=== PATIENT | male | born 1970 | race African-American/Black ===

== ENCOUNTER 2021-12-15 12:33 | Inpatient (IN) | payer MEDICAID ==
[~2021-12-15] VITALS: Ht 175.3 cm; Wt 98.4 kg
[2021-12-15] MEDS ORDERED: IOHEXOL-350 100 ML BOTTLE ONE (13:15)
[2021-12-15 13:26] LABS: BASOPHILS % 0.7 % (0.0-2.0); EOSINOPHILS % 2.9 % (0.0-5.0); HEMATOCRIT. 35.1 % (42.0-52.0); HEMOGLOBIN. 11.6 g/dL (14.0-18.0); LYMPHOCYTES % 12.3 % (20.0-50.0); MEAN CORPUSCULAR HEMOGLOBIN 30.4 pg (28.0-32.0); MEAN CORPUSCULAR VOLUME 91.8 fL (80.0-94.0); MEAN PLATELET VOLUME 8.7 fl (7.4-10.4); MONOCYTES % 7.1 % (2.0-8.0); PLATELET 260 x1000/uL (130-400); RED BLOOD CELL COUNT 3.82 mill/uL (4.7-6.1); RED CELL DISTRIBUTION WIDTH 13.9 % (11.6-14.6)
[2021-12-15 13:30] LABS: CHLORIDE 107 mEq/L (98-107)
[2021-12-15] MEDS ORDERED: DIAZEPAM 5 MG/ML 2ML CPJ IV ONE (13:30)
[2021-12-15 13:41] LABS: ETHANOL BLOOD < 10 mg/dL
[2021-12-15] MEDS ORDERED: LEVETIRACETAM 500MG PREMIX 100 ML IV ONE ×3 (13:45)
[2021-12-15] MEDS: SODIUM CHLORIDE 0.9% IV NR ×2 (14:09→15:19)
[2021-12-15] MEDS: DIAZEPAM 5 MG/ML 2ML CPJ IV NR ×2 (14:09→15:19)
[2021-12-15] MEDS: VALPROATE SODIUM IV NR ×2 (14:09→15:19)
[2021-12-15] MEDS ORDERED: SODIUM CHLORIDE 0.9% 1,000 ML IV ONE (14:15)
[2021-12-15] MEDS ORDERED: MAGNESIUM/ALUMINUM HYDROXIDE/SIMETHICONE 30ML UDC PO PRN (17:00)
[2021-12-15] MEDS ORDERED: ACETAMINOPHEN 325MG TABLET PO PRN (17:00)
[2021-12-15] MEDS ORDERED: DIAZEPAM 5 MG/ML 2ML CPJ IV PRN (17:00)
[2021-12-15] MEDS ORDERED: DIPHENHYDRAMINE 50MG/ML VIAL IV PRN (17:00)
[2021-12-15] MEDS ORDERED: ONDANSETRON HCL 4MG/2ML INJ IV PRN (17:00)
[2021-12-15] MEDS ORDERED: LEVETIRACETAM 500 MG in SODIUM CHLORIDE 0.9% 100 ML IV SCH (17:00)
[2021-12-15] MEDS ORDERED: ZOLPIDEM TARTRATE 5MG TABLET PO PRN (17:00)
[2021-12-15 20:02] LABS: CLARITY URINE CLEAR (CLEAR); COLOR URINE YELLOW (YELLOW); KETONES URINE NEGATIVE (NEGATIVE); LEUKOCYTE ESTERASE URINE NEGATIVE (NEGATIVE); NITRITE URINE NEGATIVE (NEGATIVE); OCCULT BLOOD URINE TRACE (NEGATIVE); PH URINE 7.5 (4.5-8.0); PROTEIN URINE 3+ (NEGATIVE); SPECIFIC GRAVITY URINE 1.014 (1.005-1.030)
[2021-12-15 20:14] LABS: *AMPHETAMINES SCREEN URINE NEGATIVE (NEGATIVE); *BARBITURATES SCREEN URINE NEGATIVE (NEGATIVE); *BENZODIAZEPINES SCREEN URINE NEGATIVE (NEGATIVE); *COCAINE SCREEN URINE NEGATIVE (NEGATIVE); CANNABINOID URINE SCREEN NEGATIVE (NEGATIVE); METHADONE URINE SCREEN NEGATIVE (NEGATIVE); OPIATES URINE SCREEN NEGATIVE (NEGATIVE); PHENCYCLIDINE URINE SCREEN NEGATIVE (NEGATIVE)
[2021-12-15] MEDS: LEVETIRACETAM 500MG PREMIX 100 ML IV SCH (21:08)
[2021-12-15] MEDS: SODIUM CHLORIDE 0.9% INJ 3ML FLUSH IVF SCH (21:50)
[2021-12-16 08:30] VITALS: BP 172/94
[2021-12-16] MEDS: LEVETIRACETAM 500MG PREMIX 100 ML IV SCH (09:00)
[2021-12-16 09:02] VITALS: BP 172/94
[2021-12-16] MEDS ORDERED: AMLO5TAB4 PO (10:17)
[2021-12-16] MEDS ORDERED: ATOR80TA PO (10:17)
[2021-12-16] MEDS ORDERED: VALP250C3 PO (10:17)
[2021-12-16] MEDS ORDERED: KETO15CR2 TP (10:17)
[2021-12-16] MEDS ORDERED: BACL-141 PO (10:17)
[2021-12-16] MEDS ORDERED: ALBU6.7H9 INH (10:17)
[2021-12-16] MEDS ORDERED: CLOP-31 PO (10:17)
[2021-12-16] MEDS ORDERED: ASPI-1497 PO (10:17)
[2021-12-16] MEDS ORDERED: INSU100V37 SQ (10:17)
[2021-12-16] MEDS ORDERED: FLUT1DIS3 INH (10:31)
[2021-12-16] MEDS ORDERED: INSU100I24 SQ (10:31)
[2021-12-16] MEDS ORDERED: HC A30CR10 RC (10:31)
[2021-12-16 12:00] VITALS: BP 149/60
[2021-12-16] MEDS ORDERED: LEVETIRACETAM 500MG PREMIX 100 ML IV SCH (13:30)
[2021-12-16] MEDS ORDERED: DEXTROSE 50% WATER 50ML SYRINGE IV PRN (13:45)
[2021-12-16] MEDS: SODIUM CHLORIDE 0.9% INJ 3ML FLUSH IVF SCH ×2 (14:00→21:44)
[2021-12-16] MEDS ORDERED: IPRATROPIUM/ALBUTEROL 0.5-3(2.5)MG/3ML NEB HHN PRN (14:00)
[2021-12-16 16:01] VITALS: BP 148/69
[2021-12-16] MEDS: ASPIRIN 81MG EC TABLET PO SCH (16:03)
[2021-12-16] MEDS: CLOPIDOGREL 75MG TABLET PO SCH (16:03)
[2021-12-16] MEDS: AMLODIPINE 5MG TABLET PO SCH (16:03)
[2021-12-16] MEDS: LEVETIRACETAM 500MG TABLET PO SCH ×2 (16:03→21:41)
[2021-12-16] MEDS: IPRATROPIUM/ALBUTEROL 0.5-3(2.5)MG/3ML NEB HHN SCH ×3 (16:19→23:33)
[2021-12-16] MEDS: BLOOD SUGAR DIAGNOSTIC STRIP TEST SCH ×2 (17:06→21:42)
[2021-12-16] MEDS: INSULIN LISPRO 100 UNITS/ML SUBCUT SCH ×2 (17:32→21:44)
[2021-12-16] MEDS: BACLOFEN 10MG TABLET PO SCH (17:38)
[2021-12-16] MEDS: VALPROIC ACID 250MG CAPSULE PO SCH (17:38)
[2021-12-16 20:00] VITALS: BP 166/90
[2021-12-16] MEDS ORDERED: MEDICATION NOT ON FORMULARY EA (Atorvastatin Calcium (Lipitor) 80 MG) PO SCH (21:00)
[2021-12-16] MEDS: ATORVASTATIN CALCIUM 40MG TABLET PO SCH (21:41)
[2021-12-16] MEDS: CLONIDINE 0.1MG TABLET PO PRN (21:42)
[2021-12-16] MEDS: ACETAMINOPHEN 325MG TABLET PO PRN (21:46)
[2021-12-17] VITALS: BP 147/76
[2021-12-17 00:16] LABS: HEPATITIS B SURFACE ANTIGEN NEGATIVE
[2021-12-17] MEDS: IPRATROPIUM/ALBUTEROL 0.5-3(2.5)MG/3ML NEB HHN SCH ×5 (03:49→20:37)
[2021-12-17 04:00] VITALS: BP 168/82
[2021-12-17] MEDS: CLONIDINE 0.1MG TABLET PO PRN (05:52)
[2021-12-17] MEDS: SODIUM CHLORIDE 0.9% INJ 3ML FLUSH IVF SCH ×3 (05:53→21:45)
[2021-12-17] MEDS: BLOOD SUGAR DIAGNOSTIC STRIP TEST SCH ×4 (06:50→21:42)
[2021-12-17] MEDS: INSULIN LISPRO 100 UNITS/ML SUBCUT SCH ×4 (07:50→21:55)
[2021-12-17 08:00] VITALS: BP 134/78
[2021-12-17] MEDS: ASPIRIN 81MG EC TABLET PO SCH (08:45)
[2021-12-17] MEDS: BACLOFEN 10MG TABLET PO SCH ×2 (08:45→17:41)
[2021-12-17] MEDS: VALPROIC ACID 250MG CAPSULE PO SCH ×2 (08:45→17:36)
[2021-12-17] MEDS: CLOPIDOGREL 75MG TABLET PO SCH (08:45)
[2021-12-17] MEDS: LEVETIRACETAM 500MG TABLET PO SCH ×2 (08:45→21:42)
[2021-12-17] MEDS: AMLODIPINE 5MG TABLET PO SCH (08:45)
[2021-12-17] MEDS: ACETAMINOPHEN 325MG TABLET PO PRN ×2 (10:11→23:31)
[2021-12-17 11:48] VITALS: BP_SYST 130; BP_SYST 132; BP_DIAS 175; BP_DIAS 70
[2021-12-17 16:00] VITALS: BP 130/75
[2021-12-17] MEDS ORDERED: VANCOMYCIN 2,000 MG in DEXT 5% WATER 500 ML IV NR (18:00)
[2021-12-17 20:00] VITALS: BP 133/65
[2021-12-17] MEDS: ATORVASTATIN CALCIUM 40MG TABLET PO SCH (21:42)
[2021-12-18] VITALS: BP 148/85
[2021-12-18 04:00] VITALS: BP 140/70
[2021-12-18] MEDS: IPRATROPIUM/ALBUTEROL 0.5-3(2.5)MG/3ML NEB HHN SCH ×4 (04:20→21:05)
[2021-12-18] MEDS: SODIUM CHLORIDE 0.9% INJ 3ML FLUSH IVF SCH ×3 (05:44→21:32)
[2021-12-18] MEDS: BLOOD SUGAR DIAGNOSTIC STRIP TEST SCH ×4 (05:44→21:00)
[2021-12-18] MEDS: INSULIN LISPRO 100 UNITS/ML SUBCUT SCH ×4 (07:50→21:00)
[2021-12-18 08:07] VITALS: BP 156/79
[2021-12-18] MEDS: CLOPIDOGREL 75MG TABLET PO SCH (08:36)
[2021-12-18] MEDS: AMLODIPINE 5MG TABLET PO SCH (08:36)
[2021-12-18] MEDS: BACLOFEN 10MG TABLET PO SCH ×2 (08:36→17:06)
[2021-12-18] MEDS: VALPROIC ACID 250MG CAPSULE PO SCH ×2 (08:37→17:06)
[2021-12-18] MEDS: LEVETIRACETAM 500MG TABLET PO SCH ×2 (08:37→21:32)
[2021-12-18] MEDS: ASPIRIN 81MG EC TABLET PO SCH (08:37)
[2021-12-18 12:00] VITALS: BP 145/70
[2021-12-18 16:00] VITALS: BP 127/71
[2021-12-18 20:00] VITALS: BP 125/67
[2021-12-18] MEDS ORDERED: VANCOMYCIN 750MG PREMIX 150 ML IV SCH (21:00)
[2021-12-18] MEDS: ATORVASTATIN CALCIUM 40MG TABLET PO SCH (21:31)
[2021-12-19] VITALS: BP 123/77
[2021-12-19] MEDS: IPRATROPIUM/ALBUTEROL 0.5-3(2.5)MG/3ML NEB HHN SCH ×3 (03:10→09:23)
[2021-12-19 04:00] VITALS: BP 114/55
[2021-12-19] MEDS: ACETAMINOPHEN 325MG TABLET PO PRN (04:39)
[2021-12-19 05:49] VITALS: BP 114/55
[2021-12-19] MEDS: SODIUM CHLORIDE 0.9% INJ 3ML FLUSH IVF SCH (06:00)
[2021-12-19] MEDS: BLOOD SUGAR DIAGNOSTIC STRIP TEST SCH (06:43)
[2021-12-19] MEDS: INSULIN LISPRO 100 UNITS/ML SUBCUT SCH (07:50)
[2021-12-19 08:00] VITALS: BP 108/63
[2021-12-19] MEDS: AMLODIPINE 5MG TABLET PO SCH ×2 (08:06→08:12)
[2021-12-19] MEDS: LEVETIRACETAM 500MG TABLET PO SCH (08:06)
[2021-12-19] MEDS: BACLOFEN 10MG TABLET PO SCH (08:06)
[2021-12-19] MEDS: VALPROIC ACID 250MG CAPSULE PO SCH (08:07)
[2021-12-19] MEDS: CLOPIDOGREL 75MG TABLET PO SCH (08:07)
[2021-12-19] MEDS: ASPIRIN 81MG EC TABLET PO SCH (08:07)
== END 2021-12-19 10:30 | disposition home or self-care (01) | DRG 53 ==
LOC: ER 13:21 → EDBEDREQ 15:50 → EDBEDREQTM 15:50 → EDBEDREQSVC 15:50 → ENRESERV 12-16 05:17 → 6WST 12-16 06:28
PROVIDERS: ADMIT Internal Medicine; ATTEND Internal Medicine
PROC: 5A1D70Z Performance of Urinary Filtration, Intermittent, Less than 6 Hours Per Day (ICD-10-PCS; principal; 2021-12-16)
PROC: 5A1D70Z Performance of Urinary Filtration, Intermittent, Less than 6 Hours Per Day (ICD-10-PCS; 2021-12-19)
DX: G40.909 Epilepsy, unspecified, not intractable, without status epilepticus (principal); I12.0 Hypertensive chronic kidney disease with stage 5 chronic kidney disease or end stage renal disease; R78.81 Bacteremia; N18.6 End stage renal disease; K74.60 Unspecified cirrhosis of liver; D63.8 Anemia in other chronic diseases classified elsewhere; I69.354 Hemiplegia and hemiparesis following cerebral infarction affecting left non-dominant side; Z20.822 Contact with and (suspected) exposure to COVID-19; Z99.2 Dependence on renal dialysis; Z79.02 Long term (current) use of antithrombotics/antiplatelets; Z79.899 Other long term (current) drug therapy
CPT/HCPCS: 36415; 70551; 71045; 80053; 80061; 80305; 80320; 81003; 82140; 82962; 83036; 83605; 84484; 85025; 86705; 86709; 86803; 87340; 87426; 93005; 94640; 97161; 99291; C9803; J1200; J1815; J1953; J3370; J3490; J7030; J7050; J7060; Q9967; G0480